=== PATIENT | male | born 2000 | race Caucasian/White ===

== ENCOUNTER 2020-12-13 01:40 | Emergency (ER) | payer MEDICAID ==
[~2020-12-13] VITALS: Ht 177.8 cm; Wt 70.0 kg
[2020-12-13 01:42] VITALS: BP 120/83
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
[2020-12-13] MEDS ORDERED: LIDOCAINE-MPF 2% ,5ML ONE ×2 (01:48→01:49)
[2020-12-13] MEDS ORDERED: LIDOCAINE 2%, 20ML SQ ONE (02:00)
--- NOTE | 2020-12-13 02:40 | NUR ---
ERP AT BEDSIDE FOR LAC REPAIR
--- NOTE | 2020-12-13 03:42 | NUR ---
Patient given discharge instructions and they have confirmed that they understand the instructions. Patient ambulatory with steady gait.
== END 2020-12-13 03:43 | disposition home or self-care (01) ==
LOC: ED 03:37
DX: S01.511A Laceration without foreign body of lip, initial encounter (principal); R51.9 Headache, unspecified; F17.210 Nicotine dependence, cigarettes, uncomplicated; W18.30XA Fall on same level, unspecified, initial encounter; Y93.89 Activity, other specified; Y92.410 Unspecified street and highway as the place of occurrence of the external cause; Y99.8 Other external cause status
CPT/HCPCS: 12052; 99406